=== PATIENT | female | born 1960 | race Caucasian/White ===

== ENCOUNTER 2019-06-29 13:23 | Outpatient (CLI) | payer BC ==
--- NOTE | 2019-07-03 14:14 | MMO ---
Bilateral MAMMO Bilat Screen [facility]. CLINICAL HISTORY: Patient is 59 years old and is seen for screening. The patient has the following family history of breast cancer: maternal aunt, at age 30, malignant (generic). The patient has no personal history of cancer. VIEWS: The views performed were: bilateral craniocaudal with tomosynthesis and bilateral mediolateral oblique with tomosynthesis. FILMS COMPARED: The present examination has been compared to prior imaging studies performed at This study has been interpreted with the assistance of computer-aided detection. MAMMOGRAM FINDINGS: The breasts are heterogeneously dense, which could obscure a lesion on mammography. There are benign appearing calcifications seen in both breasts. There are no suspicious masses, suspicious calcifications, or new areas of architectural distortion. IMPRESSION: THERE IS NO MAMMOGRAPHIC EVIDENCE OF MALIGNANCY. A ROUTINE FOLLOW-UP MAMMOGRAM IN 1 YEAR IS RECOMMENDED. THE RESULTS OF THIS EXAM WERE SENT TO THE PATIENT. ACR BI-RADS Category 2 - Benign finding MAMMOGRAPHY NOTE: 1. A negative mammogram report should not delay a biopsy if a dominant of clinically suspicious mass is present. 2. Approximately 10% to 15% of breast cancers are not detected by mammography. 3. Adenosis and dense breasts may obscure an underlying neoplasm. Reported by: JUNITO LERMA MD Electonically Signed: [id number]
== END 2019-06-29 13:24 | disposition home or self-care (01) ==
LOC: BICMAMMO 13:23
PROVIDERS: ATTEND Family Medicine
DX: Z12.31 Encounter for screening mammogram for malignant neoplasm of breast (principal); Z80.3 Family history of malignant neoplasm of breast
CPT/HCPCS: 77063; 77067

== ENCOUNTER 2024-10-21 21:55 | Inpatient (IN) | payer MEDICARE, OTHER ==
[2024-10-21 22:21] VITALS: BMI 36.6
[2024-10-21] MEDS ORDERED: Labetalol HCl 100 MG/20 ML VIAL SLOW IVP PRN (22:55)
[2024-10-21] MEDS ORDERED: hydrALAZINE 20 MG/ML VIAL SLOW IVP PRN (22:55)
[2024-10-21] MEDS ORDERED: Ondansetron PF 4 MG/2 ML Vial IVP PRN (22:55)
[2024-10-21] MEDS ORDERED: Acetaminophen 325 MG TAB PO PRN (22:55)
[2024-10-22] MEDS: Sodium Chloride 0.9% 1,000 ML IV SCH (00:15)
[2024-10-22 04:34] LABS: #Basophils 0.03 10x3/uL (0.0-0.2); %Basophils 0.5 % (0.0-1.0); %Lymphocytes 40.8 % (21.0-51.0); %Monocytes 7.8 % (0.0-10.0); %Neutrophils 47.7 % (42.0-75.0); Hematocrit 41.2 % (36.0-47.0); Hemoglobin 13.7 g/dL (12.0-16.0); Mean Corpuscular HGB CONC 33.3 g/dL (32.0-36.0); Mean Corpuscular Hemoglobin 29.9 pg (27.0-31.0); Mean Platelet Volume 9.2 fL (7.4-10.4); Platelet Count 251 10x3/uL (130-400); Red Blood Cell (RBC) Count 4.58 mill/uL (4.20-5.40)
[2024-10-22 04:50] LABS: Hemoglobin A1c 5.3 % (4.0-6.0)
[2024-10-22 05:00] LABS: Anion Gap 12 mmol/L (10-20); BUN (Urea Nitrogen) 16 mg/dL (9.8-20.1); Calc. Creatinine Clearance 86 mL/min (70-130); Calcium 8.9 mg/dL (7.8-10.44); Carbon Dioxide 25 mmol/L (23-31); Cardiac Risk 3.8 (Less than 4.5); Chloride 108 mmol/L (98-107); Cholesterol 150 mg/dl (< 200 Desired); Estimated GFR 60; Glucose 91 mg/dL (80-115); HDL Cholesterol 40 mg/dL (>60 Neg Risk); LDL Cholesterol, Calculated 94 mg/dL; Potassium 3.8 mmol/L (3.5-5.1); Sodium 141 mmol/L (136-145); Triglycerides 82 mg/dL (Less than 150)
[2024-10-22] MEDS: Aspirin 81 mg Enteric Coated Tablet PO SCH (10:35)
[2024-10-22] MEDS: Venlafaxine HCl XR 150 MG CAP PO SCH (10:35)
[2024-10-22] MEDS ORDERED: Polyethylene Glycol 3350 17 GM Packet PO PRN (14:12)
[2024-10-22] MEDS: Docusate 100 MG CAP PO SCH ×2 (14:32→21:07)
[2024-10-22] MEDS: Polyethylene Glycol 3350 17 GM Packet PO SCH (14:32)
[2024-10-22] MEDS: QUEtiapine 25 MG TAB PO SCH (21:07)
[2024-10-22] MEDS: Atorvastatin Calcium 40 MG TAB PO SCH (21:08)
[2024-10-23 04:21] LABS: Anion Gap 13 mmol/L (10-20); BUN (Urea Nitrogen) 14 mg/dL (9.8-20.1); Calc. Creatinine Clearance 90 mL/min (70-130); Calcium 8.7 mg/dL (7.8-10.44); Carbon Dioxide 25 mmol/L (23-31); Chloride 108 mmol/L (98-107); Estimated GFR 64; Glucose 91 mg/dL (80-115); Potassium 3.9 mmol/L (3.5-5.1); Sodium 142 mmol/L (136-145)
[2024-10-23] MEDS ORDERED: Lidocaine 1% w/Epinephrine 1:100K 20 ML VIAL ONE (08:00)
[2024-10-23] MEDS: Venlafaxine HCl XR 150 MG CAP PO SCH (10:14)
[2024-10-23] MEDS: Clopidogrel Bisulfate 75 MG TAB PO SCH (10:14)
[2024-10-23] MEDS: Polyethylene Glycol 3350 17 GM Packet PO SCH (10:15)
[2024-10-23 16:27] VITALS: BP 140/92; TEMP 97.7
[2024-10-24] MEDS ORDERED: Clopidogrel Bisulfate 75 MG TAB PO SCH (09:00)
== END 2024-10-23 16:40 | disposition home or self-care (01) | DRG 65 ==
LOC: 2SE 21:55 → OBSVTOIN 10-22 09:42
PROVIDERS: ADMIT Internal Medicine; ATTEND Hospitalist
DX: I63.9 Cerebral infarction, unspecified (principal); N17.9 Acute kidney failure, unspecified; F90.9 Attention-deficit hyperactivity disorder, unspecified type; F41.9 Anxiety disorder, unspecified; Z98.891 History of uterine scar from previous surgery; Z79.899 Other long term (current) drug therapy
CPT/HCPCS: 33285; 36415; 70551; 80048; 80061; 83036; 84443; 85025; 93306; G0378; J7030